=== PATIENT | female | born 1975 | race Asian ===

== ENCOUNTER 2020-08-06 17:52 | Emergency (ER) | payer OTHER ==
[~2020-08-06] VITALS: Ht 144.8 cm; Wt 72.7 kg
[2020-08-06] MEDS ORDERED: ONDANSETRON HCL 4 MG/2 ML VIAL IVP ONE (18:30)
[2020-08-06] MEDS ORDERED: MORPHINE SULFATE 4 MG/ML SYRINGE IVP ONE (18:30)
[2020-08-06] MEDS ORDERED: SODIUM CHLORIDE 0.9% 1,000 ML IV ONE (18:30)
[2020-08-06 18:40] LABS: COVID AG,FIA SOURCE NASOPHARYNGEAL
[2020-08-06 18:46] LABS: APPEARANCE,URINE CLEAR (CLEAR); BILIRUBIN,URINE NEGATIVE (NEGATIVE); GLUCOSE, URINE (UA) NEGATIVE (NEGATIVE); KETONES,URINE NEGATIVE (NEGATIVE); LEUKOCYTE ESTERASE ,URINE NEGATIVE (NEGATIVE); NITRATE,URINE NEGATIVE (NEGATIVE); OCCULT BLOOD,URINE TRACE (NEGATIVE); PROTEIN,URINE NEGATIVE (NEGATIVE); UROBILINOGEN,URINE 0.2 mg/dL (<=1.0)
[2020-08-06 18:56] LABS: BASOPHILS % (AUTO) 0.8 % (0.0-2.0); EOSINOPHILS % (AUTO) 2.4 % (1.0-6.0); HEMOGLOBIN 13.1 g/dL (12.0-16.0); LYMPHOCYTES # (AUTO) 0.9 K/uL (1.0-4.8); LYMPHOCYTES % (AUTO) 16.8 % (22.0-44.0); MEAN CORPUSCULAR HEMOGLOBIN 30.1 pg (26.0-34.0); MEAN CORPUSCULAR HGB CONC 33.6 G/dL (31.0-37.0); MEAN CORPUSCULAR VOLUME 90 fL (80-100); MONOCYTES # (AUTO) 0.5 K/uL (0.1-1.0); MONOCYTES % (AUTO) 8.9 % (2.0-9.0); NEUTROPHILS # (AUTO) 3.9 K/uL (1.8-7.7); NEUTROPHILS % (AUTO) 71.1 % (40.0-70.0); PLATELET COUNT (AUTO) 269 K/uL (150-450); RED BLOOD CELL COUNT(AUTO) 4.36 MIL/uL (4.00-5.20); RED CELL DISTRIBUTION WIDTH 14.1 % (11.5-14.5)
[2020-08-06 19:04] LABS: ANION GAP 9 mmol/L (8-16); CALCIUM, TOTAL 8.3 mg/dL (8.8-10.5); CARBON DIOXIDE 27 mmol/L (22-29); CHLORIDE 102 mmol/L (98-107); CREATININE 0.65 mg/dL (0.60-1.30); GLOMERULAR FILTR. RATE CALC > 60 mL/min (>60); GLUCOSE,RANDOM 95 mg/dL (70-110); POTASSIUM 3.4 mmol/L (3.5-5.1); SODIUM SERUM 138 mmol/L (136-145); UREA NITROGEN, BLOOD 9 mg/dL (7-18)
[2020-08-06 19:07] LABS: INR 1.1 (0.9-1.1); PROTHROMBIN TIME 11.2 SEC (9.4-11.6)
[2020-08-06 19:15] LABS: ALANINE AMINOTRANSFERASE 22 U/L (12-78); ALKALINE PHOSPHATASE 53 U/L (46-116); ASPARTATE AMINOTRANSFERASE 17 U/L (15-37); BILIRUBIN,TOTAL 0.4 mg/dL (0.1-1.0); HCG,QUANTITATIVE < 1 mIU/mL (0-6); LIPASE 65 U/L (73-393); TOTAL PROTEIN, SERUM 7.8 g/dL (6.4-8.2)
[2020-08-06 19:25] LABS: BACTERIA,URINE None Seen /HPF (None Seen); RBC,URINE 0-2 /HPF (0-2); SQUAMOUS EPITHELIAL CELL,UR Rare /LPF (None Seen); WBC,URINE 0-2 /HPF (0-5)
[2020-08-06 20:30] VITALS: BP 119/72
== END 2020-08-06 20:58 | disposition home or self-care (01) ==
LOC: EMS 17:59
DX: R10.13 Epigastric pain (principal); R11.2 Nausea with vomiting, unspecified; R19.7 Diarrhea, unspecified; Z20.822 Contact with and (suspected) exposure to COVID-19
CPT/HCPCS: 36415; 76705; 80053; 81001; 83690; 84702; 85025; 85610; 87426; 96361; 96374; 96375; 99284; J2270; J2405; J7030; U0003

== ENCOUNTER 2021-03-18 07:27 | Emergency (ER) | payer OTHER ==
[~2021-03-18] VITALS: Ht 152.4 cm; Wt 63.6 kg
[2021-03-18 07:28] VITALS: BP 120/76
[2021-03-18] MEDS: GELATIN SPONGE,ABSORBABLE 12-7 MM TP ONE (08:25)
[2021-03-18] MEDS: IBUPROFEN 600 MG TABLET PO ONE (08:34)
== END 2021-03-18 09:12 | disposition home or self-care (01) ==
LOC: EMS 07:30
DX: S61.301A Unspecified open wound of left index finger with damage to nail, initial encounter (principal); W45.8XXA Other foreign body or object entering through skin, initial encounter; Y93.89 Activity, other specified; Y92.89 Other specified places as the place of occurrence of the external cause; Y99.8 Other external cause status
CPT/HCPCS: 99282; Z7502; Z7610

== ENCOUNTER 2021-05-08 18:02 | Emergency (ER) | payer OTHER ==
[~2021-05-08] VITALS: Ht 144.8 cm; Wt 60.9 kg
[2021-05-08] MEDS ORDERED: TraMADol HCL 50 MG TABLET PO ONE (18:45)
[2021-05-08 21:30] VITALS: BP 132/62
[2021-05-08] MEDS ORDERED: AMMONIA 1 EA AMP IH ONE (21:45)
== END 2021-05-08 21:43 | disposition home or self-care (01) ==
LOC: EMS 18:16
DX: S83.92XA Sprain of unspecified site of left knee, initial encounter (principal); X50.9XXA Other and unspecified overexertion or strenuous movements or postures, initial encounter; Y93.89 Activity, other specified; Y92.89 Other specified places as the place of occurrence of the external cause; Y99.8 Other external cause status
CPT/HCPCS: 99283

== ENCOUNTER 2021-06-10 18:34 | Emergency (ER) | payer OTHER ==
[~2021-06-10] VITALS: Ht 144.8 cm; Wt 63.2 kg
[2021-06-10 19:10] VITALS: BP 115/54
== END 2021-06-10 19:58 | disposition home or self-care (01) ==
LOC: EMS 18:34
DX: M25.562 Pain in left knee (principal); M79.89 Other specified soft tissue disorders
CPT/HCPCS: 99283

== ENCOUNTER 2021-10-28 17:06 | Emergency (ER) | payer OTHER ==
[~2021-10-28] VITALS: Ht 144.8 cm; Wt 63.6 kg
[2021-10-28] MEDS ORDERED: IBUP-2070 PO (19:48)
[2021-10-28 20:10] VITALS: BP 127/68
== END 2021-10-28 20:12 | disposition home or self-care (01) ==
LOC: EMS 17:08
DX: M79.671 Pain in right foot (principal); Z98.890 Other specified postprocedural states
CPT/HCPCS: 99283

== ENCOUNTER 2021-12-15 11:35 | Emergency (ER) | payer OTHER ==
[~2021-12-15] VITALS: Ht 147.3 cm; Wt 75.0 kg
[~2021-12-15 11:35] MED LIST: IBUP-2070 PO
[2021-12-15 11:54] VITALS: BP 119/74
[2021-12-15] MEDS: ACETAMINOPHEN 500 MG TABLET PO ONE (14:35)
[2021-12-15 14:43] LABS: COVID AG,FIA SOURCE NASOPHARYNGEAL
[2021-12-15 15:06] LABS: INFLUENZA TYPE A NEGATIVE FOR TYPE A (NEGATIVE); INFLUENZA TYPE B NEGATIVE FOR TYPE B (NEGATIVE)
== END 2021-12-15 15:14 | disposition home or self-care (01) ==
LOC: EMS 11:42
DX: J02.9 Acute pharyngitis, unspecified (principal); Z20.822 Contact with and (suspected) exposure to COVID-19
CPT/HCPCS: 99283; 87426; 87804; U0003; C9803

== ENCOUNTER 2022-07-10 07:47 | Emergency (ER) | payer OTHER ==
[~2022-07-10] VITALS: Ht 144.8 cm; Wt 61.8 kg
[~2022-07-10 07:47] MED LIST changes: +IBUP-1492 PO; -IBUP-2070 PO
[2022-07-10] MEDS ORDERED: HYDROmorphone HCL 2 MG/ML SYRINGE IVP ONE (08:00)
[2022-07-10] MEDS ORDERED: ONDANSETRON HCL 4 MG/2 ML VIAL IVP ONE (08:00)
[2022-07-10] MEDS ORDERED: SODIUM CHLORIDE 0.9% 1,000 ML IV ONE (08:00)
[2022-07-10 08:27] LABS: BASOPHILS % (AUTO) 0.9 % (0.0-2.0); EOSINOPHILS % (AUTO) 2.8 % (1.0-6.0); HEMATOCRIT 38.7 % (36-46); HEMOGLOBIN 13.2 g/dL (12.0-16.0); LYMPHOCYTES # (AUTO) 1.5 K/uL (1.0-4.8); LYMPHOCYTES % (AUTO) 20.2 % (22.0-44.0); MEAN CORPUSCULAR HEMOGLOBIN 30.4 pg (26.0-34.0); MEAN CORPUSCULAR VOLUME 90 fL (80-100); MONOCYTES # (AUTO) 0.5 K/uL (0.1-1.0); MONOCYTES % (AUTO) 6.7 % (2.0-9.0); NEUTROPHILS % (AUTO) 69.4 % (40.0-70.0); PLATELET COUNT (AUTO) 303 K/uL (150-450); RED BLOOD CELL COUNT(AUTO) 4.33 MIL/uL (4.00-5.20); RED CELL DISTRIBUTION WIDTH 13.7 % (11.5-14.5)
[2022-07-10 08:29] LABS: APPEARANCE,URINE CLEAR (CLEAR); BILIRUBIN,URINE NEGATIVE (NEGATIVE); GLUCOSE, URINE (UA) NEGATIVE (NEGATIVE); KETONES,URINE NEGATIVE (NEGATIVE); LEUKOCYTE ESTERASE ,URINE NEGATIVE (NEGATIVE); NITRATE,URINE NEGATIVE (NEGATIVE); OCCULT BLOOD,URINE NEGATIVE (NEGATIVE); PROTEIN,URINE NEGATIVE (NEGATIVE); SPECIFIC GRAVITIY, URINE 1.007 (1.003-1.030); UROBILINOGEN,URINE <=1.0 mg/dL (<=1.0)
[2022-07-10 08:37] LABS: BACTERIA,URINE None Seen /HPF (None Seen); RBC,URINE None Seen /HPF (0-2); WBC,URINE None Seen /HPF (0-5)
[2022-07-10 08:39] LABS: ANION GAP 7 mmol/L (8-16); CARBON DIOXIDE 26 mmol/L (22-29); CHLORIDE 105 mmol/L (98-107); CREATININE 0.87 mg/dL (0.60-1.30); GLOMERULAR FILTR. RATE CALC > 60 mL/min (>60); GLUCOSE,RANDOM 106 mg/dL (70-110); POTASSIUM 3.7 mmol/L (3.5-5.1); SODIUM SERUM 138 mmol/L (136-145); UREA NITROGEN, BLOOD 8 mg/dL (7-18)
[2022-07-10 08:44] LABS: ALANINE AMINOTRANSFERASE 24 U/L (12-78); ALBUMIN 3.9 g/dL (3.4-5.0); ALKALINE PHOSPHATASE 55 U/L (46-116); ASPARTATE AMINOTRANSFERASE 15 U/L (15-37); BILIRUBIN,TOTAL 0.6 mg/dL (0.1-1.0); LIPASE 82 U/L (73-393)
[2022-07-10] MEDS ORDERED: KETOROLAC TROMETHAMINE 30 MG/ML VIAL IVP ONE (09:30)
[2022-07-10] MEDS ORDERED: METH-812 PO (10:19)
[2022-07-10] MEDS ORDERED: ACET-2080 PO ×2 (10:19→11:31)
[2022-07-10] MEDS ORDERED: IBUP-1554 PO ×2 (10:19→11:31)
[2022-07-10 11:06] VITALS: BP 120/72
[2022-07-10] MEDS ORDERED: BACL10TA PO (11:31)
== END 2022-07-10 11:53 | disposition home or self-care (01) ==
LOC: EMS 07:50
DX: M54.41 Lumbago with sciatica, right side (principal); S76.911A Strain of unspecified muscles, fascia and tendons at thigh level, right thigh, initial encounter; X58.XXXA Exposure to other specified factors, initial encounter; Y93.89 Activity, other specified; Y92.89 Other specified places as the place of occurrence of the external cause; Y99.8 Other external cause status
CPT/HCPCS: 99285; 74176; 96374; 96375; 96361; 80053; 81001; 83690; 84484; 84703; 85025; 36415; 73562; J1170; J1885; J2405; J7030

== ENCOUNTER 2022-12-10 02:27 | Emergency (ER) | payer OTHER ==
[~2022-12-10] VITALS: Ht 144.8 cm; Wt 66.0 kg
[~2022-12-10 02:27] MED LIST changes: +ACET-2080 PO; +IBUP-1554 PO; +METH-812 PO
[2022-12-10 02:30] VITALS: BP 156/97; PULSE 106; RESP 18; TEMP 98.4
== END 2022-12-10 06:02 | disposition left against medical advice (07) ==
LOC: EMS 02:29
DX: Z53.21 Procedure and treatment not carried out due to patient leaving prior to being seen by health care provider (principal)
CPT/HCPCS: 99281; Z7502

== ENCOUNTER 2023-10-31 21:45 | Emergency (ER) | payer OTHER ==
[~2023-10-31] VITALS: Ht 144.8 cm; Wt 66.4 kg
[2023-10-31 21:54] VITALS: TEMP 98.4
[2023-10-31 22:33] LABS: APPEARANCE,URINE HAZY (CLEAR); BILIRUBIN,URINE NEGATIVE (NEGATIVE); COLOR,URINE LIGHT ORANGE (YELLOW); GLUCOSE, URINE (UA) NEGATIVE (NEGATIVE); KETONES,URINE NEGATIVE (NEGATIVE); LEUKOCYTE ESTERASE ,URINE LARGE (NEGATIVE); NITRATE,URINE NEGATIVE (NEGATIVE); OCCULT BLOOD,URINE LARGE (NEGATIVE); PH,URINE 7.5 (5.0-8.0); PROTEIN,URINE 100-200,SEE CONFIRM mg/dL (NEGATIVE); SPECIFIC GRAVITIY, URINE 1.011 (1.003-1.030); UROBILINOGEN,URINE <=1.0 mg/dL (<=1.0)
[2023-10-31 23:01] LABS: BACTERIA,URINE Few /HPF (None Seen); RBC,URINE 51-100 /HPF (0-2); SQUAMOUS EPITHELIAL CELL,UR Few /LPF (None Seen); SULFOSALICYLIC ACID,URINE 1+ (Negative)
[2023-11-01 01:38] VITALS: BP 140/93; PULSE 115; RESP 18
[2023-11-01] MEDS ORDERED: CEPH-558 PO (03:22)
[2023-11-01] MEDS: CEPHALEXIN MONOHYDRATE 500 MG CAPSULE PO ONE (03:26)
== END 2023-11-01 03:27 | disposition home or self-care (01) ==
LOC: EMS 21:45
DX: N39.0 Urinary tract infection, site not specified (principal); E78.5 Hyperlipidemia, unspecified
CPT/HCPCS: 81001; 81002; 87086; 87186; 99283